=== PATIENT | female | born 1985 | race Caucasian/White ===

== ENCOUNTER → 2021-10-12 | Outpatient (CLI) | payer OTHER ==
[2021-10-12 15:19] LABS: BASO % 0.2 % (0.0-1.0); EOS % 0.6 % (1.0-4.0); HEMATOCRIT 38.5 % (37.0-47.0); MEAN CELL VOLUME 88.9 fl (81.0-99.0); MEAN CORPUSCULAR HGB 29.1 pg (27.0-31.0); MEAN CORPUSCULAR HGB CONC 32.7 g/dl (33.0-37.0); MEAN PLATELET VOLUME 10.3 fl (9.6-12.3); MONO # 0.6 10*3/uL (0.1-1.0); MONO % 9.5 % (3.0-9.0); NEUT # 3.8 10*3/uL (2.3-7.9); NEUT % 58.2 % (47.0-73.0); PLATELET COUNT AUTOMATED 221 10*3/uL (130-400); RED BLOOD COUNT 4.33 10*6/uL (4.10-5.10); RED CELL DISTRI WIDTH 12.6 % (0-14.5); RETICULOCYTE % 0.64 % (0.50-2.50); WHITE BLOOD COUNT 6.6 10*3/uL (4.8-10.8)
[2021-10-12 15:20] LABS: BILIRUBIN Negative (Negative); BLOOD 1+ (Negative); CLARITY Cloudy (Clear); COLOR Yellow (Yellow); GLUCOSE Negative (Negative); KETONE Negative (Negative); LEUKO ESTERASE 3+ (Negative); NITRITE Negative (Negative); SPECIFIC GRAVITY <= 1.005 (1.001-1.030); UROBILINOGEN 0.2 E.U./dl (0.0-1.0)
[2021-10-12 15:30] LABS: BACTERIA 2+; WBC TNTC wbc/hpf (0-5)
[2021-10-12 15:36] LABS: ALKALINE PHOSPHATASE 60 U/L (45-117); BUN 8 mg/dl (7-24); CHLORIDE 110 mmol/L (98-107); CHOLESTEROL 100 mg/dL (<200); CREATININE 0.68 mg/dL (0.55-1.02); GAMMA GLUTAMYL TRANSPEPTIDASE 9 U/L (5-55); IRON 44 ug/dL (50-170); LDL CHOLESTEROL 38 mg/dL (9-159); POTASSIUM 3.9 mmol/L (3.5-5.1); SGOT/AST 15 IU/L (3-35); SGPT/ALT 20 U/L (12-78); SODIUM 142 mmol/L (136-145); T3 UPTAKE 35 % (31-39); TOTAL IRON BINDING CAPACITY 304 ug/dl (250-450); TOTAL PROTEIN 6.8 gm/dL (6.4-8.2); TRIGLYCERIDES 68 mg/dl (<150)
[2021-10-12 15:52] LABS: VITAMIN D, 25-HYDROXY 31.1 ng/mL (30-100)
[2021-10-12 15:53] LABS: FERRITIN 15.5 ng/mL (10.0-291.0)
== END | disposition home or self-care (01) ==
LOC: LAB 14:43
PROVIDERS: ATTEND Family Medicine
DX: E78.5 Hyperlipidemia, unspecified (principal); R79.89 Other specified abnormal findings of blood chemistry; R53.83 Other fatigue; R74.8 Abnormal levels of other serum enzymes

== ENCOUNTER 2023-04-30 12:25 | Emergency (ER) | payer OTHER ==
[~2023-04-30] VITALS: Ht 172.7 cm; Wt 65.8 kg
[2023-04-30 14:36] LABS: BILIRUBIN Negative (Negative); BLOOD Negative (Negative); CLARITY Clear (Clear); COLOR Yellow (Yellow); GLUCOSE Negative (Negative); KETONE Trace (Negative); LEUKO ESTERASE Negative (Negative); NITRITE Negative (Negative); SPECIFIC GRAVITY <= 1.005 (1.001-1.030); UROBILINOGEN 0.2 E.U./dl (0.0-1.0)
[2023-04-30 14:47] LABS: BACTERIA 1+
[2023-04-30] MEDS ORDERED: CYCLOBENZAPRINE10 MG PO (18:10)
== END 2023-04-30 18:13 | disposition home or self-care (01) ==
LOC: ED 12:25
PROVIDERS: Nurse Practitioner Family
DX: S29.012A Strain of muscle and tendon of back wall of thorax, initial encounter (principal); Z88.0 Allergy status to penicillin; Z88.2 Allergy status to sulfonamides; X58.XXXA Exposure to other specified factors, initial encounter; Y93.89 Activity, other specified; Y92.89 Other specified places as the place of occurrence of the external cause; Y99.8 Other external cause status